=== PATIENT | female | born 1990 | race Hispanic/Latino ===

== ENCOUNTER 2020-02-19 15:38 | Emergency (ER) | payer OTHER ==
[~2020-02-19] VITALS: Ht 160 cm; Wt 115.2 kg
--- OUTSIDE RECORDS SUMMARY | 2020-02-19 15:40 | XMS REPORT | CCD ---
Author Author Auto JESSICA Perez [facility] Address Unknown Phone Unavailable Care Team Providers Care Flight Attendant Name Role Phone Steve Landis CP Allergies, Adverse Reactions, Alerts Substance Reaction Status aspirin Aspirin,800 MG,Oral (systemic),extended -release Active tablet codeine Active penicillins Active Problem List Condition Effective Dates Status Anemia Resolved HTN - Hypertension Resolved PCOS - Polycystic ovarian syndrome Resolved Sinusitis Resolved Medications Medication Instructions Start Date End Date Status Vitamin B12 1,000 microgram, 1 mL, Route: IM, 03/21/201303/21 Completed Drug form: INJ, ONCE, Dosing Weight 97.727, kg, Start date: 03/21/13 18:36:00, Stop date: 03/21/13 18:36:00 Vital Signs Most recent to oldest [Reference Range]: 1 Height 160.02 cm (03/21/2013 17:30:00) Weight 97.727 kg (03/21/2013 17:30:00) Results CHEMISTRY Most recent to oldest [Reference Range]: 1 Iron [30-160 ug/dl] 21 ug/dl *LOW* (03/21/2013 18:17:00) Ferritin Lvl [5-204 ng/mL] 1 ng/mL *LOW* (03/21/2013 18:17:00) % Satur Fe [12-57 %] 4 % *LOW* (03/21/2013 18:17:00) UIBC [110-370 ug/dl] 486 ug/dl *HI* (03/21/2013 18:17:00) Vitamin B12 Lvl [254-1320 pg/mL] 393 pg/mL (03/21/2013 18:36:00) TIBC [228-428 ug/dl] 507 ug/dl *HI* (03/21/2013 18:17:00) HEMATOLOGY Most recent to oldest [Reference Range]: 1 WBC [3.7-10.4 K/CMM] 6.0 K/CMM (03/21/2013 17:46:00) RBC [4.20-5.40 M/CMM] 4.10 M/CMM *LOW* (03/21/2013 17:46:00) Hgb [12.0-16.0 g/dL] 7.7 g/dL *LOW* (03/21/2013 17:46:00) Hct [36.0-48.0 %] 25.7 % *LOW* (03/21/2013 17:46:00) MCV [81.0-99.0 fL] 62.7 fL *LOW* (03/21/2013 17:46:00) MCH [27.0-31.0 pg] 18.7 pg *LOW* (03/21/2013 17:46:00) MCHC [32.0-36.0 g/dL] 29.9 g/dL *LOW* (03/21/2013 17:46:00) RDW [11.5-14.5 %] 16.1 % *HI* (03/21/2013 17:46:00) Platelet [133-450 K/CMM] 263 K/CMM (03/21/2013 17:46:00) MPV [7.4-10.4 fL] 9.2 fL (03/21/2013 17:46:00) Segs [45.0-75.0 %] 67.7 % (03/21/2013 17:46:00) Lymphocytes [20.0-40.0 %] 25.3 % (03/21/2013 17:46:00) Monocytes [2.0-12.0 %] 6.1 % (03/21/2013 17:46:00) Eosinophils [0.0-4.0 %] 0.5 % (03/21/2013 17:46:00) Basophils [0.0-1.0 %] 0.4 % (03/21/2013 17:46:00) Segs-Bands # [1.5-8.1 K/CMM] 4.0 K/CMM (03/21/2013 17:46:00) Lymphocytes # [1.0-5.5 K/CMM] 1.5 K/CMM (03/21/2013 17:46:00) Monocytes # [0.0-0.8 K/CMM] 0.4 K/CMM (03/21/2013 17:46:00) Eosinophils # [0.0-0.5 K/CMM] 0.0 K/CMM (03/21/2013 17:46:00) Basophils # [0.0-0.2 K/CMM] 0.0 K/CMM (03/21/2013 17:46:00) Polychrom [None Seen] Slight (03/21/2013 17:46:00) Hypochrom [None Seen] Slight (03/21/2013 17:46:00) Microcyte [None Seen] 2+ *ABN* (03/21/2013 17:46:00) Plt Morph Normal (03/21/2013 17:46:00) Retic Auto [0.5-1.5 %] 1.9 % *HI* (03/21/2013 17:46:00) PT [12.0-14.7 seconds] 13.4 seconds (03/21/2013 17:46:00) INR [0.85-1.17] 1.00 1 (03/21/2013 17:46:00) 1Interpretive Data: RECOMMENDED RANGES FOR PROTIME INR: 2.0-3.0 for most medical and surgical thromboembolic states. 2.5-3.5 for artificial heart valves and recurrent embolism. INR SHOULD BE USED ONLY FOR PATIENTS ON STABLE ANTICOAGULANT THERAPY.
--- OUTSIDE RECORDS SUMMARY | 2020-02-19 15:40 | XMS REPORT | Continuity of Care Document ---
Author Author [facility] [employer] Address Unknown Phone Unavailable Care Team Providers Care Account Executive Key Accounts Name Role Phone [facility] [employer] Unavailable Un available Problems Problem Status Onset Date Classification Date Reported Comments Source ABNORMAL LABS-DR SENT Active 03/21/2013 [facility] UNK Active 0 10/20/2011 [facility] UNK. Active 10/20/2011 [facility] 836.0 / CPT 04455 Active 08/09/2011 [facility] Anemia Resolved Problem 03/23/2013 [facility] HTN - Hypertension Resolved Problem 03/23/2013 [facility] PCOS - Polycystic ovarian syndrome Resolved Problem [facility] Sinusitis Resolved Problem 03/23/2013 [facility] Medications Medication Details Route Status Patient Instructions Ordering Provider Order Date Source Vitamin B12 1,000 microgram, 1 mL, Route: IM, Drug form: INJ, ONCE, Dosing Weight 97.727, kg, Start date: 03/21/13 18:36:00, Stop date: 03/21/13 18:36:00 IM No Longer Active Aaron 03/21/2013 [facility] fentanyl 25 microgram, 0.5 mL, Route: IVP, Drug form: INJ, Q5Min, PRN Pain Score 4-6, Start date: 11/08/11 8:26:00, Duration: 4 doses or times, Stop date: Limited # of times IVP No Longer Active Arceo 11/08/2011 [facility] acetaminophen-hydrocodone 325 mg-5 mg oral tablet 2 tab, Route: PO, Drug Form: TAB, Q4H, PRN Pain Score 4-6, Start date: 11/08/11 8:26:00, Duration: 30 day, Stop date: 12/08/11 8:25:00 PO No Longer Active Arceo 11/08/2011 [facility] meperidine 12.5 mg, 0.25 mL, R oute: IVP, Drug form: INJ, Q30Min, PRN Other -See Comment, For shivering, Start date: 11/08/11 8:26:00, Duration: 2 doses or times, Stop date: Limited # of times IVP No Longer Active [facility] 11/08/2011 [facility] flumazenil 0.2 mg, 2 mL, Route : IVP, Drug form: INJ, PRN, PRN Other -See Comment, Initial dose, Start date: 11/08/11 8:26:00, Duration: 5 doses or times, Stop date: Limited # of times IVP No Longer Active [facility] 11/08/2011 [facility] hydromorphone 0.5 mg, 0.25 mL, Route: IVP, Drug form: INJ, Q5Min, PRN Pain Score 4-6, Start date: 11/08/11 8:26:00, Duration: 5 doses or times, Stop date: Limited # of times IVP No Longer Active [facility] 11/08/2011 [facility] naloxone 0.04 mg, 0.1 mL, Rout e: IVP, Drug form: INJ, Q2MIN, PRN Narcotic Reversal, Start date: 11/08/11 8:26:00, Duration: 8 doses or times, Stop date: Limited # of times IVP No Longer Active [facility] 11/08/2011 [facility] ondansetron 4 mg, 2 mL, Route: IVP, Drug form: INJ, ONCE, PRN Nausea & Vomiting, Start date: 11/08/11 8:26:00 IVP No Longer Active [facility] 11/08/2011 [facility] clindamycin 900 mg, Route: IVP B, ONCE, Start date: 11/08/11 7:27:00, Stop date: 11/08/11 7:27:00 IVPB No Longer Active [facility] 11/08/2011 [facility] clindamycin 900 mg, Route: IVP B, ONCE, Start date: 11/08/11 7:22:00, Stop date: 11/08/11 7:22:00 IVPB No Longer Active Alfonso 11/08/2011 [facility] lidocaine 1% 0.5 mL, Route: DREW B-Q, Drug Form: INJ, ONCALL, Start date: 11/08/11 7:00:00, Duration: 1 doses or times SUB-Q No Longer Active [facility] 11/08/2011 [facility] Lactated Ringers Injection IV 1,000 mL 1,000 mL, Rate: 25 ml/hr, Infuse over: 40 hr, Route: IV, Total Volume: 1,000, Start date: 11/08/11 6:07:00, Duration: 30 day, Stop date: 12/08/11 6:06:00 IV No Longer Active Arceo 11/08/2011 [facility] Allergies, Adverse Reactions, Alerts Substance Category Reaction Severity Reaction type Status Date Reported Comments Source aspirin drug allergy Aspirin,800 MG,Oral (systemic),extended-release tablet Allergy Active [facility] codeine drug allergy Allergy Act yong [facility] penicillins drug allergy Allergy Act yong [facility] Immunizations No Data Provided for This Section Results Order Name Results Value Reference Range Date Interpretation Comments Source CHEMISTRY Vitamin B12 Lvl 393 254 - 1320 03/21/2013 Normal [facility] CHEMISTRY Ferritin Lvl 1 5 - 204 03/21/2013 [facility] CHEMISTRY Iron 21 30 - 160 03/21/2013 [facility] CHEMISTRY UIBC 486 110 - 370 03/21/2013 [facility] CHEMISTRY % Satur Fe 4 12 - 57 03/21/2013 [facility] CHEMISTRY TIBC 507 228 - 428 03/21/2013 [facility] HEMATOLOGY INR 1.00 0.85 - 1.17 03/21/2013 Normal <sup>1</sup>Interpretive Data: RECOMMEND ED RANGES FOR PROTIME INR:
2.0-3.0 for most medical and surgical thromboembolic states.
2.5-3.5 for artificial heart valves and recurrent embolism.

INR SHOULD BE USED ONLY FOR PATIENTS ON STABLE ANTICOAGULANT THERAPY. [facility] HEMATOLOGY PT 13.4 12.0 - 14.7 03/21/2013 Normal [facility] HEMATOLOGY Retic Auto 1.9 0.5 - 1.5 03/21/2013 [facility] HEMATOLOGY Platelet 263 133 - 450 03/21/2013 Normal [facility] HEMATOLOGY MPV 9.2 7.4 - 10.4 03/21/2013 Normal [facility] HEMATOLOGY RDW 16.1 11.5 - 14.5 03/21/2013 [facility] HEMATOLOGY MCH 18.7 27.0 - 31.0 03/21/2013 LOW [facility] HEMATOLOGY MCV 62.7 81.0 - 99.0 03/21/2013 [facility] HEMATOLOGY Hct 25.7 36.0 - 48.0 03/21/2013 LOW [facility] HEMATOLOGY MCHC 29.9 32.0 - 36.0 03/21/2013 LOW [facility] HEMATOLOGY WBC 6.0 3.7 - 10.4 03/21/2013 Normal [facility] HEMATOLOGY RBC 4.10 4.20 - 5.40 03/21/2013 LOW [facility] HEMATOLOGY Hgb 7.7 12.0 - 16.0 03/21/2013 LOW [facility] HEMATOLOGY Lymphocytes # 1.5 1.0 - 5.5 03/21/2013 Normal [facility] HEMATOLOGY Monocytes # 0.4 0.0 - 0.8 03/21/2013 Normal [facility] HEMATOLOGY Eosinophils # 0.0 0.0 - 0.5 03/21/2013 Normal [facility] HEMATOLOGY Microcyte 2+ *ABN* (03/21/2013 17:46:00) None S een 03/21/2013 ABN [facility] HEMATOLOGY Basophils # 0.0 0.0 - 0.2 03/21/2013 Normal [facility] HEMATOLOGY Hypochrom Sligh t (03/21/2013 17:46:00) None S een 03/21/2013 Normal [facility] HEMATOLOGY Polychrom Sligh t (03/21/2013 17:46:00) None S een 03/21/2013 Normal [facility] HEMATOLOGY Segs-Bands # 4.0 1.5 - 8.1 03/21/2013 Normal [facility] HEMATOLOGY Basophils 0.4 0.0 - 1.0 03/21/2013 Normal [facility] HEMATOLOGY Eosinophils 0.5 0.0 - 4.0 03/21/2013 Normal [facility] HEMATOLOGY Lymphocytes 25.3 20.0 - 40.0 03/21/2013 Normal [facility] HEMATOLOGY Monocytes 6.1 2.0 - 12.0 03/21/2013 Normal [facility] HEMATOLOGY Plt Morph Beulah l (03/21/2013 17:46:00) 03/21/2013 Normal [facility] HEMATOLOGY Segs 67.7 45.0 - 75.0 03/21/2013 Normal [facility] CHEMISTRY S Preg Negati ve *NA* (11/08/2011 06:13:00) Negati ve 11/08/2011 NA [facility] HEMATOLOGY Microcyte 1+ *ABN* (10/27/2011 08:30:00) None S een 10/27/2011 ABN [facility] HEMATOLOGY Basophils # 0.0 0.0 - 0.2 10/27/2011 Normal [facility] HEMATOLOGY Lymphocytes 29.3 20.0 - 40.0 10/27/2011 Normal [facility] HEMATOLOGY Segs 62.4 45.0 - 75.0 10/27/2011 Normal [facility] HEMATOLOGY Basophils 0.3 0.0 - 1.0 10/27/2011 Normal [facility] HEMATOLOGY Eosinophils 0.8 0.0 - 4.0 10/27/2011 Normal [facility] HEMATOLOGY Monocytes 7.2 2.0 - 12.0 10/27/2011 Normal [facility] HEMATOLOGY Eosinophils # 0.0 0.0 - 0.5 10/27/2011 Normal [facility] HEMATOLOGY Monocytes # 0.4 0.0 - 0.8 10/27/2011 Normal [facility] HEMATOLOGY Lymphocytes # 1.7 1.0 - 5.5 10/27/2011 Normal [facility] HEMATOLOGY Segs-Bands # 3.6 1.5 - 8.1 10/27/2011 Normal [facility] HEMATOLOGY MPV 9.1 7.4 - 10.4 10/27/2011 Normal [facility] HEMATOLOGY Platelet 241 133 - 450 10/27/2011 Normal [facility] HEMATOLOGY RDW 16.6 11.5 - 14.5 10/27/2011 HI [facility] HEMATOLOGY MCHC 33.1 32.0 - 36.0 10/27/2011 Normal [facility] HEMATOLOGY MCH 23.1 27.0 - 31.0 10/27/2011 LOW [facility] HEMATOLOGY MCV 69.7 81.0 - 99.0 10/27/2011 LOW [facility] HEMATOLOGY Hgb 9.2 12.0 - 16.0 10/27/2011 LOW [facility] HEMATOLOGY Hct 27.7 36.0 - 48.0 10/27/2011 LOW [facility] HEMATOLOGY RBC 3.97 4.20 - 5.40 10/27/2011 LOW [facility] HEMATOLOGY WBC 5.8 3.7 - 10.4 10/27/2011 Normal [facility] Pathology Reports No Data Provided for This Section Diagnostic Reports No Data Provided for This Section Consultation Notes No Data Provided for This Section Discharge Summaries No Data Provided for This Section History and Physicals No Data Provided for This Section Vital Signs Vital Sign Value Date Comments Source Weight 97.727 03/21/2013 [facility] Height 160.02 cm 03/21/2013 [facility] Diastolic (mm Hg) 70 11/08/2011 [facility] Respitory Rate 16 11/08/2011 [facility] Heart Rate 76 11/08/2011 [facility] Systolic (mm Hg) 130 11/08/2011 [facility] Respitory Rate 16 11/08/2011 [facility] Heart Rate 74 11/08/2011 [facility] Systolic (mm Hg) 139 11/08/2011 [facility] Diastolic (mm Hg) 64 11/08/2011 [facility] Diastolic (mm Hg) 66 11/08/2011 [facility] Respitory Rate 16 11/08/2011 [facility] Systolic (mm Hg) 125 11/08/2011 [facility] Heart Rate 75 11/08/2011 [facility] Temperature Oral (F) 98.0 F 11/08/2011 [facility] Temperature Oral (F) 98.4 F 10/27/2011 [facility] Height 160.02 cm 10/27/2011 [facility] Weight 90.909 10/27/2011 [facility] Encounters Location Location Details Encounter Type Encounter Number Reason For Visit Attending Provider ADM Date DC Date Status Source [facility] Outpatient [id number] NANCY ALFONSO 08/17/2011 08/17/2011 Discharged [facility] [id number] RICHIEKRadha ALFONSO 11/08/2011 11/08/2011 Active [facility] Emergency [id number] HAJA FLOYD 03/21/2013 03/21/2013 Discharged [facility] Procedures No Data Provided for This Section Assessment and Plan No Data Provided for This Section Plan of Care No Data Provided for This Section Social History No Data Provided for This Section Family History No Data Provided for This Section Advance Directives No Data Provided for This Section Functional Status No Data Provided for This Section
--- OUTSIDE RECORDS SUMMARY | 2020-02-19 15:40 | XMS REPORT | Clinical Summary ---
Author Author [facility] Organization [facility] Address Unknown Phone Unavailable Care Team Providers Care Open Cut Examiner Name Role Phone Asked, No Pcp PCP Unavailable Allergies Comments Active Allergy Reactions Severity Noted Date Due to gastric surgery Aspirin Other (See Medium 07/14/2010 Comments) Codeine Hives High 04/29/2010 Penicillin Hives Medium 04/06/2016 Penicillins Hives High 04/29/2010 Medications End Date Status Medication Sig Dispensed Refills Start Date Active escitalopram (LEXAPRO) 20 Take 30 mg by 2 08/26/ MG tablet mouth once 6 daily. Active traMADol (ULTRAM) 50 mg 1 tablet(s) 0 tablet as needed by oral route. Active zolpidem (AMBIEN) 5 MG zolpidem 5 mg 0 tablet tablet Active etonogestreL-ethinyl INSERT 1 RING 3 each 4 estradioL (NuvaRing) VAGINALLY 0 0.12-0.015 mg/24 hr DIRECTED. vaginal ring REMOVE AFTER 3 WEEKS & WAIT 7 DAYS BEFORE INSERTING A NEW RING 02/03/2020 Discontinued (Med List Clean up) zolpidem (AMBIEN) 5 MG Take 5 mg by 2 09/21/ 01 tablet mouth 6 nightly. 02/03/2020 Discontinued (Med List Clean up) traMADol-acetaminophen Take 1 tablet 0 (ULTRACET) 37.5-325 mg by mouth. per tablet 02/03/2020 Discontinued (Med List Clean up) escitalopram (LEXAPRO) 20 Lexapro 20 mg 0 MG tablet tablet Take 1 tablet every day by oral route. 10/02/2019 Discontinued etonogestrel-ethinyl INSERT 1 RING 4 each 3 estradiol (NUVARING) VAGINALLY 9 0.12-0.015 mg/24 hr DIRECTED. vaginal ring REMOVE AFTER 3 WEEKS AND REPLACE WITH A NEW RING IMMEDIATELY 02/03/2020 Discontinued (Reorder) etonogestrel-ethinyl INSERT 1 RING 3 each 1 estradiol (NUVARING) VAGINALLY 0 0.12-0.015 mg/24 hr DIRECTED. vaginal ring REMOVE AFTER 3 WEEKS & WAIT 7 DAYS BEFORE INSERTING A NEW RING Active Problems Not on file Encounters Care Team Description Date Type Specialty Gabriela Villagomez MD Visit for gynecologic examination (Prima ry Dx); Screening for STDs (sexually transmitted diseases) 02/03/2020 Office Visit Obstetrics and Gyne cology 02/03/2020 Travel 01/29/2020 Travel Gabriela Villagomez MD 10/02/2019 Refill Obstetrics and Gyne cology after 02/18/2019 Immunizations Name Administration Dates Next Due Influenza Trivalent 05/26/2015 Family History Medical History Relation Name Comments Hypertension Father Breast cancer Maternal Aunt great aunt Ovarian cancer Maternal Aunt great aunt Ovarian cancer Maternal Aunt great aunt Ovarian cancer Maternal Grandmother Hypertension Mother Hypertension Paternal Grandfather Dementia Paternal Grandmother Heart disease Paternal Grandmother Relation Name Status Comments Father Maternal Aunt great aunt Maternal Aunt great aunt Maternal Grandmother Mother Paternal Grandfather Paternal Grandmother Social History Date Tobacco Use Types Packs/Day Years Used Never Smoker Smokeless Tobacco: Never Used Drinks/Week oz/Week Comments Alcohol Use No Sex Assigned at Date Recorded Not on file Industry Job Start Date Occupation Not on file Not on file Not on file Travel End Travel History Travel Start No recent travel history available. Date Recorded COVID-19 Exposure Response 02/03/2020 10:12 AM CDT In the last month, have you been in contact with No / Unsure someone who was confirmed or suspected to have Coronavirus / COVID-19? Last Filed Vital Signs Reading Time Taken Comments Vital Sign 153/86 02/03/2020 10:16 AM CDT Blood Pressure 94 02/03/2020 10:16 AM CDT Pulse - - Temperature - - Respiratory Rate - - Oxygen Saturation - - Inhaled Oxygen Concentration 115 kg (254 lb) 02/03/2020 10:16 AM CDT Weight 160 cm (5' 3") 02/03/2020 10:16 AM CDT Height 44.99 02/03/2020 10:16 AM CDT Body Mass Index Plan of Treatment Health Maintenance Due Date Last Done Comments INFLUENZA VACCINE 04/25/2020 05/26/2015 CERVICAL CANCER SCREENING 12/07/2020 12/07/2017, 08/11/2014 Procedures Comments Procedure Name Priority Date/Time Associated Diag nosis TRICHOMONAS VAGINALIS Routine 02/03/2020 Screenin g for STDs RNA, QUALITATIVE, TMA, 10:34 AM CDT (sexually elizondo smitted PAP VIAL diseases) Visit for gynecologic examination THINPREP IMAGING PAP Routine 02/03/2020 Screeni ng for STDs AND HPV MRNA E6/E7 REFLEX 10:33 AM CDT (sexually t ransmitted HPV 16,18/[address]G diseases) Visit for gynecologic examination HEPATITIS B SURFACE Routine 02/03/2020 Screening for STDs ANTIGEN 10:26 AM CDT (sexually transmitt ed diseases) HEPATITIS C ANTIBODY Routine 02/03/2020 Screening for STDs 10:26 AM CDT (sexually transmitted diseases) HIV 1/2 ANTIGEN/ANTIBODY, Routine 02/03/2020 Scre ening for STDs FOURTH GENERATION W/RFL 10:26 AM CDT (sexually tra nsmitted diseases) RPR SCREEN Routine 02/03/2020 Screening for S TDs 10:26 AM CDT (sexually transmitted diseases) after 02/18/2019 Results * Trichomonas vaginalis RNA, Qualitative, TMA, PAP Vial (02/03/2020 10:34 AM CDT) Trichomonas NOT DETECTED NOT DETECTED 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 The modifications have not been cleared or approved by the FDA. This assay has been validated pursuant to the CLIA regulations and is used for clinical purposes. For additional information, please refer to http://education.Mailana.com/ faq/Trichomonastma (This link is being provided for information/ educational purposes only.) Specimen Thin prep solution Resulting Agency Comment Performing Organization Information: Site ID: [id number] Name: [facility] Address: [address] [place] [phone] Director: Dr. Jace Palomo Performing Organization Address City/State/Zipcode Ph one Number [facility] [address] [place] [address] II * ThinPrep Imaging Pap and HPV mRNA E6/E7 reflex HPV 16,18/[address]/NG (02/03/2020 10:33 AM CDT) Clinical None given [facility] information DIAGNOSTICS [facility] Date of last 20,200,419 [facility] menstrual [facility]NO[facility] period [facility] Prev. pap: NONE GIVEN [facility] Prev. bx: NONE GIVEN [facility] Source Comment: Cervix, Endocervix [facility] Statement of Comment: [facility] adequacy Satisfactory for evaluation. DI[facility]ST ICS Endocervical/transformation BYNUM zone component present. Interpretation/ Comment: Negative for [facility] result: intraepithelial lesion or DIAGNOSTICS malignancy. [facility] Comment Comment: [facility] This Pap test has been DIAGNOSTICS evaluated with [employer] technology. [facility] Comment: [facility] t YL, CT(ASCP) DIAGNOSTICS CT screening location: [place] [address] [address], [facility] [address] Comment Comment: [facility] EXPLANATORY NOTE: DIAGNOSTICS The Pap is a screening test BYNUM for cervical cancer. It is not a diagnostic test and is subject to false negative and false positive results. It is most reliable when a satisfactory sample, regularly obtained, is submitted with relevant clinical findings and history, and when the Pap result is evaluated along with historic and current clinical information. HPV mRNA e6/e7 Not Detected Not Detected [facility] Comment: [facility] This test was performed using ING II the APTIMA HPV Assay ([employer] This assay detects E6/E7 viral messenger RNA (mRNA) from 14 high-risk HPV types (16,18,31,33,35,39,45,51,52,56 ,58,59,66,68). The analytical performance characteristics of this assay have been determined by [facility]. The modifications have not been cleared or approved by the FDA. This assay has been validated pursuant to the CLIA regulations and is used for clinical purposes. Chlamydia NOT DETECTED NOT DETECTED [facility] trachomatis [facility] RNA, TMA ING II Neisseria NOT DETECTED NOT DETECTED [facility] gonorrhoeae [facility] RNA, TMA ING II (Always Comment: [facility] message) The analytical performance DIAGNOSTIC S-[facility] characteristics of this ING II assay, when used to test SurePath(TM) specimens have been determined by [facility]. The modifications have not been cleared or approved by the FDA. This assay has been validated pursuant to the CLIA regulations and is used for clinical purposes. For additional information, please refer to https://education.Tyfone.MicroVision/faq/MGE696 (This link is being provided for information/ educational purposes only.) Specimen Thin prep solution Resulting Agency Comment Performing Organization Information: Site ID: [id number] Name: [facility] Address: [address] [place] [id number] Director: Dr. Jace Palomo Site ID: [id number] Name: [facility] Address: [address] [place] [phone] Director: Jace Palomo Performing Organization Address City/[facility] Ph one Number [facility] [phone] [facility] [place] [address] II * HIV 1/2 ANTIGEN/ANTIBODY, FOURTH GENERATION W/RFL (02/03/2020 10:26 AM CDT) HIV AG/AB 4th NON-REACTIVE NON-REACTIVE [facility] gen Comment: DIAGNOSTICS HIV-1 antigen and HIV-1/HIV-2 BYNUM antibodies were not detected. There is no laboratory evidence of HIV infection. PLEASE NOTE: This information has been disclosed to you from records whose confidentiality may be protected by state law. If your state requires such protection, then the state law prohibits you from making any further disclosure of the information without the specific written consent of the person to whom it pertains, or as otherwise permitted by law. A general authorization for the release of medical or other information is NOT sufficient for this purpose. For additional information please refer to http://education.Mailana.MicroVision/faq/WOD331 (This link is being provided for informational/ educational purposes only.) The performance of this assay has not been clinically validated in patients less than 2 years old. Specimen Resulting Agency Comment Performing Organization Information: Site ID: [id number] Name: [facility] Address: [address] [place] [phone] Director: Jace Palomo Performing Organization Address [facility] one Number [facility] [address] [phone] * Hepatitis C antibody (02/03/2020 10:26 AM CDT) Hepatitis C Ab NON-REACTIVE NON-REACTIVE [facility] Signal/cutoff 0.01 <1.00 [facility] Comment: DIAGNOSTICS HCV antibody was non-reactive. BYNUM There is no laboratory evidence of HCV infection. In most cases, no further action is required. However, if recent HCV exposure is suspected, a test for HCV RNA (test code 00684) is suggested. For additional information please refer to http://education.Mailana.MicroVision/faq/OSV46c4 (This link is being provided for informational/ educational purposes only.) Specimen Blood Resulting Agency Comment Performing Organization Information: Site ID: [id number] Name: [facility] Address: [address] [place] [phone] Director: Jace Palomo Performing Organization Address [facility] one Number [facility] [place] [phone] * RPR screen (02/03/2020 10:26 AM CDT) Pathologist [facility] RPR (monitor) NON-REACTIVE NON-REACTIVE [facility] w/refl titer DI[facility]NOSTICS [facility] Specimen Blood Resulting Agency Comment Performing Organization Information: Site ID: A Name: [facility] Address: [address] [place] [phone] Director: Jaec Palomo Performing Organization Address [facility] one Number [facility] [place] [phone] * Hepatitis B surface antigen (02/03/2020 10:26 AM CDT) Pathologist [facility] Hepatitis B NON-REACTIVE NON-REACTIVE [facility] surface Ag DIAGNOSTICS BY[facility] Specimen Blood Resulting Agency Comment Performing Organization Information: Site ID: A Name: [facility] Address: [address] [place] [phone] Director: Jace Palomo Performing Organization Address [facility] one Number [facility] [address] [phone] 02/18/2019 Insurance Type Payer Benefit Subscriber ID Effective Phone Address Plan / Dates Group PPO [id number] FAULKNER PPO xxxxxxxxxx [id number] OPEN resent CHOICE Advance Directives For more information, please contact: [phone] 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
--- OUTSIDE RECORDS SUMMARY | 2020-02-19 15:40 | XMS REPORT ---
Author Author [facility] t Organization [facility] Address [address] [place] [address] Phone Unavailable Care Team Providers Care Muffler Hand Name Role Phone Asked, Pcp No PCP Unavailable Ansley Banks MD Attphys Payers Payer Name Policy Type Policy Number Effective Date Expiration Date Marion munoz AETNAAETNA PPO OPEN [id number] xxxxxxxxxx 2016 00:00:00 [facility] Problems Condition Name Condition Details Condition Category Status Onset Date Resolution Date Last Treatment Date Treating Clinician Comments Source ABNORMAL LABS- SENT ABNO RMAL LABS-DR SENT Active 03/21/2013 [facility] Active 2013-03-21 00:00:00 2013-03-21 19:17: 00 [facility] UNK. UNK. Active 10/20/2011 [facility] Active 2011-10-20 00:00:00 2011-11-11 20:14:00 [facility] 836.0 / CPT 38347 836. 0 / CPT 85182 Active 08/09/2011 [facility] Active 2011-08-09 00:00:00 2011-09-13 06:50:00 [facility] Anemia Anem ia Resolved Problem 03/23/2013 [facility] Problem Resolved 2013-03-23 22:23:40 [facility] HTN - Hypertension HTN - Hypertension Resolved Problem 03/23/2013 [facility] Problem Resolved 2013-03-23 22:23:40 [facility] PCOS - Polycystic ovarian syndrome PCOS - Polycystic ovarian syndrome Resolved Problem 03/23/2013 [facility] Problem Resolved 2013-03-23 22:23:40 [facility] Sinusitis Sinu sitis Resolved Problem 03/23/2013 [facility] Problem Resolved 2013-03-23 22:23:40 [facility] Allergies, Adverse Reactions, Alerts Allergy Name Allergy Type Status Severity Reaction(s) Onset Date Inacti ve Date Treating Clinician Comments Source Penicillin Propensity to adverse reactions to drug Active Hives 2016-04-06 00:00:00 [facility] Aspirin Propensity to adverse reactions to drug Active Other (See Comments) 2010-07-14 00:00:00 Due to gastric surgery [place] [facility] Codeine Propensity to adverse reactions to drug Active Hives 2010-04-29 00:00:00 [facility] Penicillins Propensity to adverse reactions to drug Active Hives 2010-04-29 00:00:00 [facility] aspirin aspirin Active [facility] codeine codeine Active [facility] penicillins penicillins Active [facility] Family History Family Member Diagnosis Comments Start Date Stop Date Source Natural father Hypertension Keven Ramos Maternal aunt Breast cancer Keven Ramos Maternal aunt Ovarian cancer Keven Ramos Maternal grandmother Ovarian cancer Keven Ramos Natural mother Hypertension Keven Ramos Paternal grandfather Hypertension Ho justin Ramos Paternal grandmother Dementia [place] jesse Ramos Paternal grandmother Heart disease H sharan Ramos Social History Social Habit Start Date Stop Date Quantity Comments Source Sex Assigned At Maria T Ramos Exposure to SARS-CoV-2 (event) Not sure Keven Ramos Alcohol intake 2020-02-03 00:00:00 2020-02-03 00:00:00 Current non-drinker of alcohol (finding) Keven Ramos Smoking Status Start Date Stop Date Source Never smoker Keven chowdhury Medications Ordered Medication Name Filled Medication Name Start Date Stop Da te Current Medication? Ordering Clinician Indication Dosage Frequency Signature (SIG) Comments Components Source traMADol (ULTRAM) 50 mg tablet 2020-02-03 10:22:00 Yes 1 tablet(s) as needed by oral route. Keven pollard zolpidem (AMBIEN) 5 MG tablet 2020-02-03 10:22:00 Yes zolpidem 5 mg tablet Keven Ramos traMADol-acetaminophen (ULTRACET) 37.5-325 mg per tablet 2020-02-03 10:21:59 2020-02-03 00:00:00 No 1{tbl} Take 1 tablet by yoan th. Keven Ramos escitalopram (LEXAPRO) 20 MG tablet 2020-02-03 10:21:2 6 2020-02-03 00:00:00 No Lexapro 20 mg tablet Take 1 tablet every day by oral route. Keven Ramos etonogestreL-ethinyl estradioL (NuvaRing) 0.12-0.015 mg/24 h r vaginal ring 2020-02-03 00:00:00 Yes INSERT 1 RING VAGINALLY DIRECTED. REMOVE AFTER 3 WEEKS & WAIT 7 DAYS BEFORE INSERTING A NEW RING Keven Ramos etonogestrel-ethinyl estradiol (NUVARING) 0.12-0.015 mg/24 h r vaginal ring 2019-10-02 00:00:00 2020-02-03 00:00:00 No INSERT 1 RING VAGINALLY DIRECTED. REMOVE AFTER 3 WEEKS & WAIT 7 DAYS BEFORE INSERTING A NEW RING Keven Ramos etonogestrel-ethinyl estradiol (NUVARING) 0.12-0.015 mg/24 h r vaginal ring 2018-12-13 00:00:00 2019-10-02 00:00:00 No INSERT 1 RING VAGINALLY DIRECTED. REMOVE AFTER 3 WEEKS [address] WITH A NEW RING IMMEDIATELY Keven Ramos escitalopram (LEXAPRO) 20 MG tablet 2016-09-21 00:00:00 Yes 30mg QD Take 30 mg by mouth once daily. Keven fox zolpidem (AMBIEN) 5 MG tablet 2016-09-21 00:00:00 2020-02-03 00: 00:00 No 5mg QD Take 5 mg by mouth nightly. Keven Ramos Vitamin B12 2013-03-21 23:36:00 No Lester Walker 1,000 microgram, 1 mL, Route: IM, Drug form: INJ, ONCE, Dosing Weight 97.727, kg, Start date: 03/21/13 18:36:00, Stop date: 03/21/13 18:36:00 [facility] fentanyl 2011-11-08 14:26:00 No Raj Coelho Arceo 25 microgram, 0.5 mL, Route: IVP, Drug form: INJ, Q5Min, PRN Pain Score 4-6, Start date: 11/08/11 8:26:00, Duration: 4 doses or times, Stop date: Limited # of times [facility] acetaminophen-hydrocodone 325 mg-5 mg oral tablet 14:26:00 No Raj Coelho Arceo 2 tab, Route: PO , Drug Form: TAB, Q4H, PRN Pain Score 4-6, Start date: 11/08/11 8:26:00, Duration: 30 day, Stop date: 12/08/11 8:25:00 [facility] meperidine 2011-11-08 14:26:00 No Canh Vu Arceo 12.5 mg, 0.25 mL, Route: IVP, Drug form: INJ, Q30Min, PRN Other -See Comment, For shivering, Start date: 11/08/11 8:26:00, Duration: 2 doses or times, Stop date: Limited # of times [facility] flumazenil 2011-11-08 14:26:00 No Canh Vu Arceo 0.2 mg, 2 mL, Route: IVP, Drug form: INJ, PRN, PRN Other -See Comment, Initial dose, Start date: 11/08/11 8:26:00, Duration: 5 doses or times, Stop date: Limited # of times [facility] hydromorphone 2011-11-08 14:26:00 No Canh Vu Arceo 0.5 mg, 0.25 mL, Route: IVP, Drug form: INJ, Q5Min, PRN Pain Score 4-6, Start date: 11/08/11 8:26:00, Duration: 5 doses or times, Stop date: Limited # of times [facility] naloxone 2011-11-08 14:26:00 No Canh Vu Arceo 0.04 mg, 0.1 mL, Route: IVP, Drug form: INJ, Q2MIN, PRN Narcotic Reversal, Start date: 11/08/11 8:26:00, Duration: 8 doses or times, Stop date: Limited # of times [facility] ondansetron 2011-11-08 14:26:00 No Canh Vu Arceo 4 mg, 2 mL, Route: IVP, Drug form: INJ, ONCE, PRN Nausea & Vomiting, Start date: 11/08/11 8:26:00 [facility] clindamycin 2011-11-08 13:27:00 No Shaan Van Campa 900 mg, Route: IVPB, ONCE, Start date: 11/08/11 7:27:00, Stop date: 11/08/11 7:27:00 [facility] clindamycin 2011-11-08 13:22:00 No Shaan Crisostomo Campa 900 mg, Route: IVPB, ONCE, Start date: 11/08/11 7:22:00, Stop date: 11/08/11 7:22:00 [facility] lidocaine 1% 2011-11-08 13:00:00 No Raj Coelho Arceo 0.5 mL, Route: SUB- Q, Drug Form: INJ, ONCALL, Start date: 11/08/11 7:00:00, Duration: 1 doses or times [facility] Lactated Ringers Injection IV 1,000 mL 2011-11-08 12:07:00 No Jaxrico Meliton Arceo 1,000 mL, Rate: 25 ml/hr, Infuse over: 40 hr, Route: IV, Total Volume: 1,000, Start date: 11/08/11 6:07:00, Duration: 30 day, Stop date: 12/08/11 6:06:00 [facility] Immunizations Ordered Immunization Name Filled Immunization Name Date Status Comments Source Influenza Trivalent 2015-05-26 00:00:00 Completed [facility] Vital Signs Vital Name Observation Time Observation Value Comments Source Systolic blood pressure 2020-02-03 10:16:00 153 mm[Hg] [facility] Diastolic blood pressure 2020-02-03 10:16:00 86 mm[Hg] [facility] Heart rate 2020-02-03 10:16:00 94 /[facility] 2020-02-03 10:16:00 160 cm [facility] Body weight 2020-02-03 10:16:00 115.214 kg [facility] BMI 2020-02-03 10:16:00 44.99 kg/m2 [facility] Weight 2013-03-21 22:30:00 [facility] Height 2013-03-21 22:30:00 160.02 cm [place] Diastolic (mm Hg) 2011-11-08 16:30:00 [facility] Rate 2011-11-08 16:30:00 [facility] Rate 2011-11-08 16:30:00 [place] Systolic (mm Hg) 2011-11-08 16:30:00 [facility] Respitory Rate 2011-11-08 15:45:00 [facility] Heart Rate 2011-11-08 15:45:00 [place] Systolic (mm Hg) 2011-11-08 15:45:00 [facility] Diastolic (mm Hg) 2011-11-08 15:45:00 [facility] Diastolic (mm Hg) 2011-11-08 15:30:00 [facility] Respitory Rate 2011-11-08 15:30:00 [facility] Systolic (mm Hg) 2011-11-08 15:30:00 [facility] Heart Rate 2011-11-08 12:57:00 [facility] Temperature Oral (F) 2011-11-08 12:57:00 98.0 F [facility] Temperature Oral (F) 2011-10-27 14:28:00 98.4 F [facility] Height 2011-10-27 13:40:00 160.02 cm [facility] Weight 2011-10-27 13:40:00 [facility] Procedures Procedure Date / Time Performed Performing Clinician Sour e TRICHOMONAS VAGINALIS RNA, QUALITATIVE, TMA, PAP VIAL 02-02 10:34:00 Gabriela Banks THINPREP IMAGING PAP AND HPV MRNA E6/E7 REFLEX HPV 1 6,18/[address]/G 2020-02-03 10:33:00 Gabriela Banks RPR SCREEN 2020-02-03 10:26:00 Gabriela Banks HIV 1/2 ANTIGEN/ANTIBODY, FOURTH GENERATION W/RFL 2020-02-03 10:26:00 Gabriela Banks HEPATITIS C ANTIBODY 2020-02-03 10:26:00 Gabriela Banks n [employer] HEPATITIS B SURFACE ANTIGEN 2020-02-03 10:26:00 Gabriela Banks Plan of Care Planned Activity Planned Date Details Comments Source Future Scheduled Test 2020-12-07 00:00:00 Screening for august gnant neoplasm of cervix (procedure) [code = 432943301] Keven chowdhuyr Future Scheduled Test 2020-04-25 00:00:00 INFLUENZA VACCINE [code = INFLUENZA VACCINE] Keven Ramos Encounters Start Date/Time End Date/Time Encounter Type Admission Type [facility] Care Department Encounter ID Source 2020-02-03 00:00:00 2020-02-03 00:00:00 Outpatient GABRIELA BANKS [facility] [id number] Keven Ramos 2013-03-21 17:22:00 2013-03-21 21:09:00 Emergency MHIEAL T [facility] [id number] [facility] 2011-11-08 05:13:00 2011-11-08 10:45:00 DS MHIEALT [facility] [id number] [facility] 2011-08-17 13:15:00 2011-08-17 23:59:00 Outpatient MHIEA LT [facility] [id number] [facility] Results Test Description Test Time Test Comments Results Result Comments Source [facility] Pap and HPV mRNA E6/E7 reflex HPV 1 6,18/[address]/NG 2020-02-06 12:29:00 Test Item Clinical information (test code = 50904-5) None given Date of last menstrual period (test code = 8665-2) 20200112 Prev. pap: (test code = 85901-4) NONE GIVEN Prev. bx: (test code = 07856-5) NONE GIVEN Source (test code = 50967-1) Cervix, Endocervix Statement of adequacy (test code = 81347-1) Satisfactory for evaluation.Endocervical/transformation zone componentpresent. Interpretation/result: (test code = 15719-4) Negative for intraepithelial lesion or malignancy. Comment (test code = 16740-6) This Pap test has been evaluated with computerassisted technology. Resource Recovery Engineer (test code = 32952-3) YL, CT(ASCP)CT screening location: [place] [address] [address] [facility] [address] Comment (test code = 4364554) EXPLANATORY NOTE: The Pap is a screening test for cervical cancer. It is not a diagnostic test and is subject to false negative and false positive results. It is most reliable when a satisfactory sa mple, regularly obtained, is submitted with relevant clinical findings and history, and when the Pap result is evaluated along with historic and current clinical information. HPV mRNA e6/e7 (test code = 50400-8) Not Detected Not Detected This test was performed using the APTIMA HPV Assay ([employer] This assay detects E6/E7 viral messenger RNA (mRNA) from 14high-risk HPV types (16,18,31,33,35,39,45,51,52,56,58,59,66,68). The analytical performance characteristics ofthis assay have been determined by [employer]. The modifications have not beencleared or approved by the FDA. This assay hasbeen validated pursuant to the CLIA regulationsand is used for clinical purposes. Chlamydia trachomatis RNA, TMA (test code = 73890-2) NOT DETECTE D NOT DETECTED Neisseria gonorrhoeae RNA, TMA (test code = 80073-0) NOT DETECTE D NOT DETECTED (Always message) (test code = 2647) The analytical performance characteristics of thisassay, when used to test SurePath(TM) specimens have beendetermined by [employer]. The modifications havenot been cleared or approved by the FDA. This assay hasbeen validated pursuant to the CLIA regulations and isused for clinical purposes. For additional information, please refer tohttps://Invarium.[employer]/faq/YMD377(This link is being provided for information/educational purposes only.) RAC (test code = [facility]) Performing Organization Info rmation: Site ID: IG [facility]: [facility] Address: [address] [place] [id number] Director: Dr. Jace Palomo Site ID: RGA [facility] Address: [address] [place] [phone] Director: Jace Baca MethodistTrichomonas vaginalis RNA, Qualitative, TMA, PAP [id number] 21:08:00* Test Item Value Reference Range Interpretation Comments Trichomonas vaginalis, ql tma, pap vial (test code = 69207-2 ) NOT DETECTED NOT DETECTED The analytical performance c haracteristics of thisassay have been determined by [employer]. Themodifications have not been cleared or approved bythe FDA. This assay has been validated pursuant to theCLIA regulations and is used for clinical purposes. For additional information, please refer tohttp://Invarium.[employer]/faq/Trichomonastma(This link is being provided for information/educational purposes only.) RAC (test code = RAC) Performing Organization Info rmation: Site ID: IG [facility]: [facility] Address: [address] [place] [id number] Director: Dr. Jace Baca MethodistHepatitis B surface [id number] 12:26:00* Test Item Value Reference Range Interpretation Comments Hepatitis B surface Ag (test code = 5196-1) NON-REACTIVE NON-REACTI VE RAC (test code = RAC) Performing Organization Info rmation: Site ID: DAVID Name: [facility] Address: [address] [place] [address] Director: Jace Javon PorterDewey [place] MethodistRPR [id number] 12:26:00* Test Item Value Reference Range Interpretation Comments RPR (monitor) w/refl titer (test code = 22695-3) NON-REACTIVE NON-R EACTIVE RAC (test code = RAC) Performing Organization Info rmation: Site ID: DAVID [facility]: [facility] Address: [address] [place] [address] Director: [facility] MethodistHepatitis C uirxzamb2917-03-53 12:26:00* Test Item Value Reference Range Interpretation Comments Hepatitis C Ab (test code = 44929-2) NON-REACTIVE NON-REACTIVE Signal/cutoff (test code = 11289-9) 0.01 <1.00 HCV antibody was non-reactive. There is no laboratory evidence of HCV infection. In most cases, no further action is required. However,if recent HCV exposure is suspected, a test for HCV RNA(test code 05417) is suggested. For additional information please refer tohttp://education.[employer]/faq/QVB22t7(This link is being provided for informational/educational purposes only.) RAC (test code = RAC) Performing Organization Info rmation: Site ID: DAVID Name: [facility] Address: [address] [place], [place] [id number] Director: Jace [place] MethodistHIV 1/2 ANTIGEN/ANTIBODY, FOURTH GENERATION [id number] 12:26:00* Test Item Value Reference Range Interpretation Comments HIV AG/AB 4th gen (test code = 73798-5) NON-REACTIVE NON-REACTIVE HIV-1 antigen and HIV-1/HIV-2 antibodies were notdetected. There is no laboratory evidence of HIVinfection. PLEASE NOTE: This information has been disclosed toyou from records whose confidentiality may beprotected by state law. If your state requires suchprotection, then the state law prohibits you frommaking any further disclosure of the informationwithout the specific written consent of the persont o whom it pertains, or as otherwise permitted by law.A general authorization for the release of medical orother information is NOT sufficient for this purpose. For additional information please refer t [employer]p://education.[employer]/faq/YII605(This link is being provided for informational/educational purposes only.) The performance of this assay has not been clinicallyvalidated in patients less than 2 years old. RAC (test code = RAC) Performing Organization Info rmation: Site ID: RGA [facility]: [facility] Address: [address] [place] [phone] Director: Jace Baca GazphnkmaKUKPJMJTF4835-77-27 23:36:90304NXBeverly HospitalQouwtdcidVMPOSRXKA7940-72-39 23:17:001[facility] HospitalVacnaihwwHBMATZQIG9288-76-05 23:17:0021 [facility] 2013-03-21 23:17:37063QD LwrztyxlwSIYVBFWHV2381-41-90 23:17:004[facility] NHSQRPQLD6701-94-10 23:17:51850MSBeverly HospitalWdjlzosjjELQEJRPELE9667-94-20 22:46:001.00[facility] HospitalPypkpdpuyOIMGRIVNQD9706-37-97 22:46:00* Test Item Value Reference Range Interpretation Comments PT (test code = PT) 13.4 s 12.0-14.7 N IywzohicoXABJJXIAKX2958-52-61 22:46:001.9 RbekcwfrvUZPDSXKNZK6163-42-34 22:46:27085YQ WtefzueynKNTXHODHBD6028-13-64 22:46:009.2[facility] 2013-03-21 22:46:0016.1M HwlqwdntoZSTGJMMBBW5325-97-48 22:46:00* Test Item Value Reference Range Interpretation Comments MCH (test code = MCH) 18.7 pg 27.0-31.0 L OwfewqtzjBBXSZZWRXV4665-04-22 22:46:0062.7 XpsxzpiwlYCOSLKEOSG9279-03-01 22:46:0025.7 LcewpbbxbJHHUWDSSUM9323-03-49 22:46:0029.9 [facility] 2013-03-21 22:46:006.0 KtrcyuaqsWYMQNXZUMK6776-97-25 22:46:004.10[facility] FYFDYAJNOZ0979-78-38 22:46:007.7 MiggoacaiWFXHPCNYGG4547-92-14 22:46:001.5 WxptqpskrZFGDOMPUUK2841-17-35 22:46:000.4 BhybxwoyjEPCFPOVWFR0463-51-01 22:46:000.0 GpryjrpglFYUEPRRLTY4088-03-27 22:46:002+ *ABN*(03/21/2013 17:46:00) CqkycbudyFOAOGOXJEN4899-48-25 22:46:000.0 [facility] 2013-03-21 22:46:00Slight (03/21/2013 17:46:00) [facility] 2013-03-21 22:46:00Slight (03/21/2013 17:46:00) [facility] 2013-03-21 22:46:004.0 MwtsvppzvBHHPLMZFEA1662-18-36 22:46:000.4[facility] RJPWTWPNFJ8349-05-52 22:46:000.5[facility] HospitalNfjtzllyiPWSIYLDBJO8612-75-09 22:46:0025.3M EphklnvgjSCBQDREWFX8205-71-06 22:46:006.1M[facility] HospitalLkqlamwruOKHTUIHRRX2385-21-30 22:46:00Normal (03/21/2013 17:46:00) [facility] HospitalLkwnogursPDKAQNMJGO8525-06-42 22:46:00 67.7[facility] HospitalEdxydkqfwUYDXJCXMB6870-63-82 12:13:00Negative *NA*(11/08/2011 06:13:00) [facility] HospitalQoiaqppgyQJOHWZXGOY0478-65-21 14:30:001+ *ABN*(10/27/2011 08:30:00) YmzijqvwfGVIRPYRKET5997-06-74 14:30:000.0[facility] HospitalFrnazubeyCVIMOJULCL4218-28-42 14:30:0029.3M PjgcmaivaXLWMHWTIHU8267-12-47 14:30:0062.4 [facility] 2011-10-27 14:30:000.3M UkrywrejmOCSMNTCQJR4263-00-43 14:30:000.8[facility] NKCCRHZEAK5709-16-82 14:30:007.2MVal[facility] Behavior[facility] HospitalFqlbrlwhvNQJOTSPHWI3582-25-42 14:30:000.0[facility] HospitalRxpsnhkteOQZOSWUTRO2658-94-28 14:30:000.4[facility] HospitalLmoligfnsIUXQWNGDJW1772-05-01 14:30:001.7[facility] HospitalRhtgwfayaWWUHHNJRLV8271-11-88 14:30:003.6MVal[facility] HospitalHEMATOLOGY 2011-10-27 14:30:009.1MVal[facility] HospitalDdyfixmcwGNVTLLBOCL6151-43-73 14:30:32615Y[facility]ur[facility]2012-02-02 14:30:0016.6MValley Springs Behavioral Health HospitalEnmvuavdcCSIZGMAHNZ5839-39-99 14:30:[address] [place], [place] [address]IprexrzjpBPCYEIECDH0941-81-42 14:30:00* Test Item Value Reference Range Interpretation Comments MCH (test code = MCH) 23.1 pg 27.0-31.0 L [facility] MassachusettsVgaxfotjoPUFEMPDNKZ2939-01-63 14:30:0069.7[facility] MassachusettsIplxzvzfxNFYTGMLLXO8759-80-71 14:30:009.2MVal[facility] Health HospitalFqwfhwyspRTBEQUQQQZ3239-46-64 14:30:0027.7[facility] 2011-10-27 14:30:003.[address] [place], [place] [address]UivpdyghyNKPQZGREEK1195-96-69 14:30:005.8[facility]
--- OUTSIDE RECORDS SUMMARY | 2020-02-19 15:40 | XMS REPORT | CCD ---
Author Author Auto JESSICA Perez [facility] Address Unknown Phone Unavailable Care Team Providers Care Rural Electrification Engineer Name Role Phone Shaan Campa RP Allergies, Adverse Reactions, Alerts Substance Reaction Status aspirin Aspirin,800 MG,Oral (systemic),extended -release Active tablet codeine Active penicillins Active Medications Medication Instructions Start Date End Date Status fentanyl 25 microgram, 0.5 mL, Route: IVP, 11/08/201111/08 Discontinued Drug form: INJ, Q5Min, PRN Pain Score 4-6, Start date: 11/08/11 8:26:00, Duration: 4 doses or times, Stop date: Limited # of times acetaminophen-hydroc 2 tab, Route: PO, Drug Form: TAB, 201111/08/2011 Discontinued odone 325 mg-5 mg Q4H, PRN Pain Score 4-6, St art oral tablet date: 11/08/11 8:26:00, Dur ation: 30 day, Stop date: 12/08/11 8:25:00 meperidine 12.5 mg, 0.25 mL, Route: IVP, Drug 11/08/201110/26 Discontinued form: INJ, Q30Min, PRN Other -See Comment, For shivering, Start date: 11/08/11 8:26:00, Duration: 2 doses or times, Stop date: Limited # of times flumazenil 0.2 mg, 2 mL, Route: IVP, Drug 11/08/2011 11/08/19 Discontinued form: INJ, PRN, PRN Other -See Comment, Initial dose, Start date: 11/08/11 8:26:00, Duration: 5 doses or times, Stop date: Limited # of times hydromorphone 0.5 mg, 0.25 mL, Route: IVP, Drug 11/08/2011 Discontinued form: INJ, Q5Min, PRN Pain Score 4-6, Start date: 11/08/11 8:26:00, Duration: 5 doses or times, Stop date: Limited # of times naloxone 0.04 mg, 0.1 mL, Route: IVP, Drug 11/08/201111/08 Discontinued form: INJ, Q2MIN, PRN Narcotic Reversal, Start date: 11/08/11 8:26:00, Duration: 8 doses or times, Stop date: Limited # of times ondansetron 4 mg, 2 mL, Route: IVP, Drug form: 11/08/201110/26 Discontinued INJ, ONCE, PRN Nausea & Vomiting, Start date: 11/08/11 8:26:00 lidocaine 1% 0.5 mL, Route: SUB-Q, Drug Form: 11/08/201111/08 Discontinued INJ, ONCALL, Start date: 11/08/11 7:00:00, Duration: 1 doses or times Lactated Ringers 1,000 mL, Rate: 25 ml/hr, Infuse 11/08/2011 0 11/08/2011 Discontinued Injection IV 1,000 over: 40 hr, Route: IV, Tot al mL Volume: 1,000, Start date: 11/08/11 6:07:00, Duration: 30 day, Stop date: 12/08/11 6:06:00 clindamycin 900 mg, Route: IVPB, ONCE, Start 11/08/20112011 Completed date: 11/08/11 7:22:00, Stop date: 11/08/11 7:22:00 clindamycin 900 mg, Route: IVPB, ONCE, Start 11/08/20112011 Deleted date: 11/08/11 7:27:00, Stop date: 11/08/11 7:27:00 Vital Signs Most recent to oldest [Reference Range]: 1 2 3 Height 160.02 cm (10/27/2011 07:40:00) Temperature Oral [96.4-99.1 DegF] 98.0 DegF (11/08/2011 06:57:00) 98.4 DegF (10/27/2011 08:28:00) Systolic Blood Pressure [90-140 mmHg] 130 mmHg (11/08/2011 10:30:00) 139 mmHg (11/08/2011 09:45:00) 125 mmHg (11/08/2011 09:30:00) Diastolic Blood Pressure [60-90 mmHg] 70 mmHg (11/08/2011 10:30:00) 64 mmHg (11/08/2011 09:45:00) 66 mmHg (11/08/2011 09:30:00) Respiratory Rate [14-20 BRMIN] 16 BRMIN (11/08/2011 10:30:00) 16 BRMIN (11/08/2011 09:45:00) 16 BRMIN (11/08/2011 09:30:00) Peripheral Pulse Rate [60-100 bpm] 76 bpm (11/08/2011 10:30:00) 74 bpm (11/08/2011 09:45:00) 75 bpm (11/08/2011 06:57:00) Weight 90.909 kg (10/27/2011 07:40:00) Results CHEMISTRY Most recent to oldest [Reference Range]: 1 S Preg [Negative] Negative *NA* (11/08/2011 06:13:00) HEMATOLOGY Most recent to oldest [Reference Range]: 1 WBC [3.7-10.4 K/CMM] 5.8 K/CMM (10/27/2011 08:30:00) RBC [4.20-5.40 M/CMM] 3.97 M/CMM *LOW* (10/27/2011 08:30:00) Hgb [12.0-16.0 g/dL] 9.2 g/dL *LOW* (10/27/2011 08:30:00) Hct [36.0-48.0 %] 27.7 % *LOW* (10/27/2011 08:30:00) MCV [81.0-99.0 fL] 69.7 fL *LOW* (10/27/2011 08:30:00) MCH [27.0-31.0 pg] 23.1 pg *LOW* (10/27/2011 08:30:00) MCHC [32.0-36.0 g/dL] 33.1 g/dL (10/27/2011 08:30:00) RDW [11.5-14.5 %] 16.6 % *HI* (10/27/2011 08:30:00) Platelet [133-450 K/CMM] 241 K/CMM (10/27/2011 08:30:00) MPV [7.4-10.4 fL] 9.1 fL (10/27/2011 08:30:00) Segs [45.0-75.0 %] 62.4 % (10/27/2011 08:30:00) Lymphocytes [20.0-40.0 %] 29.3 % (10/27/2011 08:30:00) Monocytes [2.0-12.0 %] 7.2 % (10/27/2011 08:30:00) Eosinophils [0.0-4.0 %] 0.8 % (10/27/2011 08:30:00) Basophils [0.0-1.0 %] 0.3 % (10/27/2011 08:30:00) Segs-Bands # [1.5-8.1 K/CMM] 3.6 K/CMM (10/27/2011 08:30:00) Lymphocytes # [1.0-5.5 K/CMM] 1.7 K/CMM (10/27/2011 08:30:00) Monocytes # [0.0-0.8 K/CMM] 0.4 K/CMM (10/27/2011 08:30:00) Eosinophils # [0.0-0.5 K/CMM] 0.0 K/CMM (10/27/2011 08:30:00) Basophils # [0.0-0.2 K/CMM] 0.0 K/CMM (10/27/2011 08:30:00) Microcyte [None Seen] 1+ *ABN* (10/27/2011 08:30:00)
[2020-02-19] MEDS ORDERED: SODIUM CHLORIDE 0.9% 1000ML 1,000 ML IV STA ×2 (15:42→17:02)
--- NOTE | 2020-02-19 16:09 | Emergency Department Note ---
History of Present Illnes History of Present Illness Chief Complaint: General Medicine Complaints History of Present Illness This is a 29 year old female . 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 Any updates have been documented here. (CAR ROSALES NP) Past Medical History Recent Fever: No Clinical Suspicion of Infectio: No New/Unexplained Change in Ment: No Past Medical History: Anemia Other Medical History: PCOS GASTRIC BYPASS IRON INFUSIONS Past Surgical History: Bariatric Surgery (CAR ROSALES NP) Social History Smoking Cessation: Never Smoker Counseling Performed: No Any Illegal Drug Use: No TB Exposure/Symptoms: No Physically hurt or threatened: No (CAR ROSALES NP) Family History Family history of heart diseas: No (CAR ROSALES NP) Other Last Tetanus: UNKNOWN (CAR ROSALES NP) Review of Systems ROS Narrative PATIENT IN FROM HOME WITH COMPLAINTS OF FEELING LIGHT HEADED AND PALPITATIONS WHILE AT WORK; PATIENT STATES THAT SHE 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 PATIENT DENIES PAIN AT THIS TIME, RESP EVEN AND NONLABORED, APPEARS IN NO DISTRESS. PATIENT STATES SHE WAS IN THE HEAT A TOTAL OF 3.5 HOURS, ALSO STATES SHE HAD A SIMILAR EPISODE FIVE YEARS AGO, WENT TO SEE A SPOOLER. pATIENT STATES SHE HAS NOT SEEN A SPOOLER SINCE (CAR ROSALES NP) Review of Systems Constitutional: no symptoms EENTM: no symptoms Cardiovascular: palpitations Respiratory: no symptoms Gastrointestinal: no symptoms Genitourinary: no symptoms Musculoskeletal: no symptoms Neurological: no symptoms Psychological: no symptoms Endocrine: no symptoms Hematological/Lymphatic: no symptoms Review of other systems All other systems reviewed and negative. (CAR ROSALES NP) Physical Exam Related Data Allergies: Coded Allergies: Penicillins (Verified Allergy, Severe, RASH, 5/27/20) aspirin (Verified Allergy, Mild, CONTRAINDICATED DUE TO BARIATRIC SURGERY, 02/19/20) codeine (Verified Allergy, Mild, RASH, 02/19/20) Triage Vital Signs Vital Signs Date Time Temp Pulse Resp B/P (MAP) Pulse Ox O2 Delivery O2 Flow Rate FiO2 02/19/20 15:50 98.5 115 16 132/104 100 Vital signs reviewed: Yes (CAR ROSALES NP) Physical Exam CONSTITUTIONAL Constitutional: well-developed, well-nourished, obese HENT HENT: normocephalic, atraumatic, oropharynx clear/moist, nose normal HENT L/R: left ext ear normal, right ext ear normal EYES Eyes: PERRL, conjunctivae normal NECK Neck: ROM normal PULMONARY Pulmonary: effort normal, breath sounds normal CARDIOVASCULAR Cardiovascular: regular rhythm, capillary refill normal, normal rate, tachycardia GASTROINTESTINAL Abdominal: soft, nontender, bowel sounds normal GENITOURINARY Genitourinary: exam deferred SKIN Skin: warm, dry MUSCULOSKELETAL Musculoskeletal: ROM normal NEUROLOGICAL Neurological: alert, oriented x 3, no gross motor or sensory deficits PSYCHOLOGICAL Psychological: mood/affect normal, judgement normal (CAR ROSALES NP) Results Laboratory Lab results reviewed: Yes (CAR ROSALES NP) Imaging Imaging results reviewed: Yes (CAR ROSALES NP) Procedures 12 Lead ECG Interpretation Ditch Repairer: Interpreted by ED physician (JOSE) Date: February 19, 2020 Time: 15:47 Rhythm: sinus tachycardia Clinical Impression: abnormal ECG (CAR ROSALES NP) Critical Care Time Subsequent provider I assumed direction of critical care for this patient from another provider of my specialty. (CAR ROSALES NP) Assessment & Plan Reassessment Reassessment Patient results discussed with Dr Hernandes. Discussed all results with patient and all questions answered. Second IVF running. Will re-assess after fluids (CAR ROSALES NP) Assessment & Plan Final Impression: (1) Tachycardia (2) Dehydration symptoms Assessment & Plan blood work and UA all normal. Patient feels better after IVF. Discussed DC treatment plan. Dr Hernandes also assessed patient. (CAR ROSALES NP) Depart Disposition: HOME, SELF-CARE Last Vital Signs Date Time Temp Pulse Resp B/P (MAP) Pulse Ox O2 Delivery O2 Flow Rate FiO2 5/27/20 15:50 98.5 115 16 132/104 100 (CAR ROSALES NP) Medications in the ED Sodium Chloride 1,000 ml @ 0 mls/hr Q0M STAT IV ; Start 02/19/20 at 15:42; Stop 02/19/20 at 15:44; Status DC (CAR ROSALES NP) Physician Attestation Provider Attestation The patient's history, exam findings, diagnostics, and a summary of any interventions or procedures was reviewed in detail with our ROSALES. I personally interviewed and examined the patient, and I have reviewed and agree with the HPI andexam. My personal exam shows [ dry mm, rrr no mcg , blcta]. I confirm the diagnosis as documented by the ROSALES. I have reviewed and agree with the care plan articulated in the disposition section. (JOSE HERNANDES) CAR ROSALES NP February 19, 2020 16:09 JOSE HERNANDES February 19, 2020 20:11
[2020-02-19 16:14] LABS: BASOPHILS # (AUTO) 0.1 (0.0-0.1); BASOPHILS % 0.5 % (0.0-1.0); EOSINOPHILS % 0.3 % (0.0-6.0); HEMATOCRIT 41.1 % (34.2-44.1); HEMOGLOBIN 13.6 g/dL (12.0-16.0); LYMPHOCYTES # (AUTO) 2.5 (1.0-3.2); LYMPHOCYTES % 26.9 % (18.0-39.1); MEAN CORPUSCULAR HEMOGLOBIN 28.8 pg (28-32); MEAN CORPUSCULAR HGB CONC 33.1 g/dL (31-35); MEAN CORPUSCULAR VOLUME 87.1 fL (81-99); MONOCYTES # (AUTO) 0.6 (0.2-0.8); MONOCYTES % 6.6 % (4.4-11.3); NEUTROPHILS # (AUTO) 6.1 (2.1-6.9); NEUTROPHILS % 65.4 % (38.7-80.0); PLATELET COUNT 296 x10e3/uL (140-360); RED BLOOD COUNT 4.72 x10e6/uL (3.6-5.1); RED CELL DISTRIBUTION WIDTH 12.6 % (11.7-14.4)
[2020-02-19 16:23] LABS: CLARITY,URINE SL CLOUDY (CLEAR); COLOR,URINE YELLOW (YELLOW); INR 0.81; LEUKOCYTE ESTERASE ,URINE NEGATIVE (NEGATIVE); NITRITE,URINE NEGATIVE (NEGATIVE); PARTIAL THROMBOPLASTIN TIME 24.7 seconds (23.8-35.5); PROTEIN,URINE DIPSTICK NEGATIVE (NEGATIVE); PROTHROMBIN TIME 11.7 seconds (11.9-14.5)
[2020-02-19 16:24] LABS: AMPHETAMINES SCREEN,URINE NEGATIVE (NEGATIVE); BENZODIAZEPINES SCREEN,URINE NEGATIVE (NEGATIVE); BILIRUBIN,URINE NEGATIVE (NEGATIVE); KETONES,URINE NEGATIVE (NEGATIVE); PHENCYCLIDINE SCREEN,URINE NEGATIVE (NEGATIVE); URINE UROBILINOGEN 0.2 mg/dL (0.2 - 1)
[2020-02-19 16:31] LABS: ALANINE AMINOTRANSFERASE 17 IU/L (0-55); ALBUMIN 3.7 g/dL (3.5-5.0); ALBUMIN/GLOBULIN RATIO 0.9 (0.8-2.0); ALKALINE PHOSPHATASE 63 IU/L (40-150); ANION GAP 14.8 mmol/L (8-16); BLOOD UREA NITROGEN 8 mg/dL (7-26); BUN/CREATININE RATIO 11 (6-25); CALCIUM 9.6 mg/dL (8.4-10.2); CARBON DIOXIDE 20 mmol/L (22-29); CHLORIDE 109 mmol/L (98-107); CREATINE KINASE 85 IU/L (29-168); CREATININE, SERUM 0.75 mg/dL (0.57-1.11); EST GLOMERULAR FILTRATION RATE > 60 ML/MIN (60-); GLUCOSE 107 mg/dL (74-118); POTASSIUM 3.8 mmol/L (3.5-5.1); SODIUM 140 mmol/L (136-145)
[2020-02-19 16:36] LABS: BACTERIA,URINE MODERATE /HPF; EPITHELIAL CELLS,URINE MODERATE /LPF
[2020-02-19 16:37] LABS: MUCUS,URINE FEW (RARE)
--- NOTE | 2020-02-19 18:25 | Diagnostic Imaging Report ---
Examination: Single AP view of the chest. COMPARISON: None. INDICATION: Palpitations DISCUSSION: Lines/tubes: None. Lungs: The lungs are well inflated and clear. No pneumonia or pulmonary edema. Pleura: No pleural effusion or pneumothorax. Heart and mediastinum: The heart and the mediastinum are unremarkable. Bones and soft tissues: No acute bony abnormalities. IMPRESSION: 1. No acute cardiopulmonary abnormalities. Signed by: Dr. Justyn Perez M.D. on 02/19/2020 6:22 PM
[2020-02-19 18:57] VITALS: BP 118/69
== END 2020-02-19 19:12 | disposition home or self-care (01) ==
LOC: ER 15:38
DX: R00.2 Palpitations (principal); R00.0 Tachycardia, unspecified; E86.0 Dehydration; Y99.0 Civilian activity done for income or pay; E28.2 Polycystic ovarian syndrome; Z98.84 Bariatric surgery status
CPT/HCPCS: 36415; 71045; 80053; 80307; 81001; 81025; 82550; 82553; 83735; 84443; 84484; 85025; 85379; 85610; 85730; 99284; J7030; 93005